=== PATIENT | male | born 1950 | race Caucasian/White ===

== ENCOUNTER → 2016-12-15 | Outpatient (CLI) | payer BC, MEDICARE ==
[~2016-12-15] VITALS: Ht 180.3 cm; Wt 127.0 kg
[~2016-12-15] MED LIST: ALLEGRA; ARGI500C5 OR; ASCO100076 OR; ASPI-264 OR; ATO40T OR; FLUT500M2 INH; FOLI1TAB6 OR; FURO40TA PO; HCTZ; LEVEMIR SC; LOSA100T22 PO; METF-312 OR; MULTI VIT; NITROSTAT; POTA10SO11 PO; TAM04C OR; [UNRECOGNIZED DRUG - CODE]; [UNRECOGNIZED DRUG - REMARK]
[2016-12-15 11:00] VITALS: BP 137/78
[2016-12-15 11:40] VITALS: BP 134/74
[2016-12-15 16:43] LABS: INR 0.97 (0.9-1.15); Partial Thromboplastin Time 25.7 sec (22.64-33.71)
[2016-12-15 16:56] LABS: Potassium 3.6 mmol/L (3.5-5.1)
[2016-12-15 17:01] LABS: BUN/Creatinine Ratio 15.4; Calcium 8.6 mg/dL (8.5-10.1)
[2016-12-15 17:09] LABS: Basophils # (auto) 0 uL; Basophils % (auto) 0.1 % (0.0-2.0); Eosinophils # (auto) 0.4 uL; Eosinophils % (auto) 6.3 % (0.0-7.0); Hematocrit 45.4 % (41.0-53.0); Hemoglobin 15.1 g/dL (13.5-17.5); Lymphocytes % (auto) 15.6 % (10.0-50.0); Mean Corpuscular Hemoglobin 31.3 pg (28.0-32.0); Mean Corpuscular Hgb Conc. 33.3 g/dL (32.0-36.0); Mean Platelet Volume 8.7 fL (7.4-10.4); Monocytes # (auto) 0.6 uL; Monocytes % (auto) 8.6 % (0.0-12.0); Neutrophils # (auto) 4.5 uL; Neutrophils % (auto) 69.4 % (37.0-80.0); Platelet Count (auto) 273 10^3/uL (140-450); Red Cell Distribution Width 13.9 % (11.6-16.0); White Blood Cell 6.5 10^3/uL (4.4-10.8)
== END | disposition home or self-care (01) ==
LOC: Rad HDHVI 10:45
PROVIDERS: ATTEND Internal Medicine Cardiovascular Disease
DX: I10 Essential (primary) hypertension (principal); D64.9 Anemia, unspecified; R79.1 Abnormal coagulation profile
CPT/HCPCS: 36415; 71020; 80048; 85025; 85049; 85610; 85730; G0463

== ENCOUNTER 2016-12-17 13:23 | Day surgery (SDC) | payer BC, MEDICARE ==
[~2016-12-17] VITALS: Ht 180.3 cm; Wt 127.0 kg
[~2016-12-17 13:23] MED LIST changes: -ALLEGRA; -HCTZ; +LIDOCAINE 2%HCL (LOCAL ANESTH.) INJ 20ML MDV ONE; -TAM04C OR; -[UNRECOGNIZED DRUG - CODE]
[2016-12-17] MEDS ORDERED: VANCOMYCIN HCL 1000 MG VL ONE (14:02)
[2016-12-17] MEDS ORDERED: VANCOMYCIN 1GM/250ML D5W 250 ML IV ONE ×2 (14:02→14:15)
[2016-12-17] MEDS ORDERED: VANCOMYCIN HCL 1000 MG VL IR ONE (14:15)
[2016-12-17] MEDS ORDERED: fentaNYL CITRATE 100 MCG/2 ML VL ONE (15:06)
[2016-12-17] MEDS ORDERED: MIDAZOLAM HCL 1MG/1ML-2 ML VIAL ONE (15:07)
[2016-12-17] MEDS ORDERED: diphenhdrAMINE HCL 50 MG/1 ML VL ONE ×2 (15:55→15:59)
[2016-12-17] MEDS ORDERED: methylPREDNISolone SOD SUCC 125 MG/2 ML VL ONE (15:55)
[2016-12-17] MEDS ORDERED: diphenhdrAMINE HCL 50 MG/1 ML VL IV ONE (16:15)
[2016-12-17] MEDS ORDERED: methylPREDNISolone SOD SUCC 125 MG/2 ML VL IV ONE (16:15)
== END 2016-12-17 18:00 | disposition home or self-care (01) ==
LOC: CATH 13:23
PROVIDERS: ATTEND Internal Medicine Cardiovascular Disease
DX: I25.10 Atherosclerotic heart disease of native coronary artery without angina pectoris (principal); I20.9 Angina pectoris, unspecified; Z95.1 Presence of aortocoronary bypass graft; I10 Essential (primary) hypertension; E78.5 Hyperlipidemia, unspecified; E11.9 Type 2 diabetes mellitus without complications; J45.909 Unspecified asthma, uncomplicated
CPT/HCPCS: 33228; C1785; J1200; J2250; J2930; J3010; J3370; J7030; 99152

== ENCOUNTER 2017-03-30 01:27 | Inpatient (IN) | payer BC, MEDICARE ==
[~2017-03-30] VITALS: Ht 180.3 cm; Wt 120.1 kg
[~2017-03-30 01:27] MED LIST changes: -LIDOCAINE 2%HCL (LOCAL ANESTH.) INJ 20ML MDV ONE
[2017-03-30 02:35] LABS: Urine Bilirubin Negative (Negative); Urine Color PINK (Yellow); Urine Glucose Normal (Normal); Urine Ketone TRACE (Negative); Urine Mucus FEW (None Seen); Urine Nitrite Negative (Negative); Urine RBC 840 /hpf (0 - 3); Urine Urobilinogen Normal (Negative)
[2017-03-30 02:35] LABS: Basophils # (auto) 0 uL; Basophils % (auto) 0.3 % (0.0-2.0); Eosinophils # (auto) 0.3 uL; Eosinophils % (auto) 2.6 % (0.0-7.0); Hematocrit 45.4 % (41.0-53.0); Hemoglobin 15.3 g/dL (13.5-17.5); Lymphocytes # (auto) 1.1 uL; Lymphocytes % (auto) 11.5 % (10.0-50.0); Mean Corpuscular Hemoglobin 31.7 pg (28.0-32.0); Mean Corpuscular Hgb Conc. 33.7 g/dL (32.0-36.0); Mean Corpuscular Volume 94.1 fL (80.0-100.0); Mean Platelet Volume 7.7 fL (7.4-10.4); Monocytes # (auto) 0.8 uL; Neutrophils # (auto) 7.5 uL; Neutrophils % (auto) 77.6 % (37.0-80.0); Platelet Count (auto) 305 10^3/uL (140-450); Red Cell Distribution Width 13.9 % (11.6-16.0); White Blood Cell 9.6 10^3/uL (4.4-10.8)
[2017-03-30 02:38] LABS: Urine Blood 3+ /uL (Negative)
[2017-03-30 03:06] LABS: Albumin 4.1 g/dL (3.4-5.0); BUN/Creatinine Ratio 13.9; Calcium 8.9 mg/dL (8.5-10.1)
[2017-03-30 03:09] LABS: Bilirubin, Total 0.6 mg/dL (0.2-1.0); Total Protein 7.6 g/dL (6.4-8.2)
[2017-03-30] MEDS ORDERED: SODIUM CHLORIDE 0.9% 1,000 ML IV ONE (07:38)
[2017-03-30] MEDS ORDERED: KETOROLAC TROMETH 30 MG/ML 1ML VIAL IV ONE (08:30)
[2017-03-30 08:40] LABS: B-Type Natriuretic Peptide 8.12 pg/mL (0-100)
[2017-03-30 08:41] LABS: Temperature: 23.6 C (20.0-25.0)
[2017-03-30] MEDS ORDERED: TEMAZEPAM 15 MG CAP PO PRN (10:30)
[2017-03-30] MEDS ORDERED: DEXTROSE (50%) 50ML SYRG IV PRN (10:30)
[2017-03-30] MEDS ORDERED: MORPHINE SULF INJ 2 MG/ML SYRINGE 1ML IV PRN ×3 (10:30→14:00)
[2017-03-30] MEDS ORDERED: LOSARTAN POTASSIUM 50 MG TAB PO ONE (10:30)
[2017-03-30] MEDS ORDERED: ACETAMINOPHEN 325 MG TAB PO PRN (10:30)
[2017-03-30] MEDS ORDERED: ONDANSETRON HCL 4 MG/2 ML VIAL IV PRN (10:30)
[2017-03-30] MEDS ORDERED: DOCUSATE SOD 100 MG CAP PO PRN (10:30)
[2017-03-30] MEDS ORDERED: NITROGLYCERIN 0.4 MG SL TAB SL PRN (10:30)
[2017-03-30] MEDS ORDERED: HYDROcodone-ACET 5/325MG TAB PO PRN ×2 (10:30→14:00)
[2017-03-30] MEDS: ASPirin-EC 81 mg tab PO SCH (10:45)
[2017-03-30] MEDS: FAMOTIDINE 20 MG TAB PO SCH ×2 (10:45→21:33)
[2017-03-30] MEDS: FOLIC ACID 1 MG TAB PO SCH (11:03)
[2017-03-30] MEDS: FUROSEMIDE 40 MG TAB PO SCH ×3 (11:03→18:38)
[2017-03-30] MEDS: POTASSIUM CHL 20 Meq TABLET PO SCH ×2 (11:03→21:33)
[2017-03-30] MEDS: ASCORBIC ACID 500 MG TAB PO SCH (11:04)
[2017-03-30] MEDS: INSULIN DETEMIR(LEVEMIR) 1unit/0.01ml Soln (100units/ml) SC SCH (11:04)
[2017-03-30] MEDS: LEVOFLOXACIN 500MG 100 ML IV SCH (11:13)
[2017-03-30] MEDS: InsuLIN REG 1unit/0.01ml Soln (100units/ml) SC SCH ×3 (11:30→21:34)
[2017-03-30] MEDS: ACCU-CHEK COMFORT CURVE STRIP VI SCH ×3 (11:30→22:00)
[2017-03-30] MEDS: BUDESONIDE (INHALATION) 0.5 MG/2 ML NEB NEB SCH ×2 (12:03→19:23)
[2017-03-30] MEDS: ALBUTEROL SULF 2.5 MG/0.5ML(0.5%) NEB SOLN NEB SCH ×2 (12:11→19:23)
[2017-03-30] MEDS ORDERED: POTA1TAB4 PO (12:23)
[2017-03-30] MEDS ORDERED: MULT-569 PO (12:23)
[2017-03-30] MEDS ORDERED: POM PO (12:23)
[2017-03-30] MEDS ORDERED: ASPI-498 OR (12:23)
[2017-03-30] MEDS ORDERED: CLOP75TA28 PO (12:23)
[2017-03-30 13:34] VITALS: BP 131/86
[2017-03-30] MEDS: MORPHINE SULF INJ 2 MG/ML SYRINGE 1ML IV PRN (14:01)
[2017-03-30] MEDS: SODIUM CHLOR 0.9% PF (SALINE LOCK) 10ML VIAL IV SCH ×2 (14:04→21:33)
[2017-03-30 17:23] VITALS: BP 136/71
[2017-03-30] MEDS: TAMSULOSIN HYDROCHLORIDE 0.4 MG CAP PO SCH (18:33)
[2017-03-30] MEDS: KETOROLAC TROMETH 30 MG/ML 1ML VIAL IV PRN (18:36)
[2017-03-30] MEDS: ATORVASTATIN 20 MG TAB PO SCH (21:35)
[2017-03-30 22:00] VITALS: BP 135/71
[2017-03-31] VITALS (27 sets, daily range): BP systolic 100–146; BP diastolic 48–84
[2017-03-31] MEDS: ALBUTEROL SULF 2.5 MG/0.5ML(0.5%) NEB SOLN NEB SCH ×4 (00:53→18:40)
[2017-03-31] MEDS: INSULIN DETEMIR(LEVEMIR) 1unit/0.01ml Soln (100units/ml) SC SCH ×3 (04:41→22:00)
[2017-03-31] MEDS: KETOROLAC TROMETH 30 MG/ML 1ML VIAL IV PRN (05:16)
[2017-03-31] MEDS: SODIUM CHLOR 0.9% PF (SALINE LOCK) 10ML VIAL IV SCH ×3 (06:23→22:24)
[2017-03-31] MEDS: InsuLIN REG 1unit/0.01ml Soln (100units/ml) SC SCH ×4 (06:23→22:30)
[2017-03-31] MEDS: ACCU-CHEK COMFORT CURVE STRIP VI SCH ×4 (06:23→22:00)
[2017-03-31] MEDS: BUDESONIDE (INHALATION) 0.5 MG/2 ML NEB NEB SCH (06:47)
[2017-03-31 06:50] LABS: Basophils # (auto) 0 uL; Basophils % (auto) 0.2 % (0.0-2.0); Eosinophils # (auto) 0.3 uL; Eosinophils % (auto) 3.2 % (0.0-7.0); Hematocrit 38.9 % (41.0-53.0); Hemoglobin 13.1 g/dL (13.5-17.5); Lymphocytes % (auto) 11.6 % (10.0-50.0); Mean Corpuscular Hemoglobin 31.8 pg (28.0-32.0); Mean Corpuscular Hgb Conc. 33.5 g/dL (32.0-36.0); Mean Corpuscular Volume 94.9 fL (80.0-100.0); Monocytes % (auto) 12.1 % (0.0-12.0); Neutrophils # (auto) 6.2 uL; Neutrophils % (auto) 72.9 % (37.0-80.0); Platelet Count (auto) 223 10^3/uL (140-450); Red Cell Distribution Width 13.9 % (11.6-16.0); White Blood Cell 8.5 10^3/uL (4.4-10.8)
[2017-03-31 07:20] LABS: Albumin 3.4 g/dL (3.4-5.0); BUN/Creatinine Ratio 15.1; Calcium 8.2 mg/dL (8.5-10.1); Potassium 3.9 mmol/L (3.5-5.1)
[2017-03-31 07:23] LABS: Bilirubin, Total 0.6 mg/dL (0.2-1.0)
[2017-03-31 09:04] LABS: Partial Thromboplastin Time 24.5 sec (22.64-33.71); Prothrombin Time 10.8 sec (9.37-12.3)
[2017-03-31] MEDS: [UNRECOGNIZED DRUG - OTHER] PO SCH (10:00)
[2017-03-31] MEDS: ASPirin-EC 81 mg tab PO SCH (10:00)
[2017-03-31] MEDS: MULTIPLE VITAMIN TAB PO SCH (10:00)
[2017-03-31] MEDS: POTASSIUM CHL 20 Meq TABLET PO SCH (10:00)
[2017-03-31] MEDS: LOSARTAN POTASSIUM 50 MG TAB PO SCH (10:00)
[2017-03-31] MEDS: FAMOTIDINE 20 MG TAB PO SCH (10:00)
[2017-03-31] MEDS: FOLIC ACID 1 MG TAB PO SCH (10:00)
[2017-03-31] MEDS: ASCORBIC ACID 500 MG TAB PO SCH (10:00)
[2017-03-31] MEDS ORDERED: PATIENTS OWN MEDICATION IN SCH ×2 (10:00)
[2017-03-31] MEDS: LEVOFLOXACIN 500MG 100 ML IV SCH (11:23)
[2017-03-31] MEDS: MORPHINE SULF INJ 2 MG/ML SYRINGE 1ML IV PRN (12:25)
[2017-03-31] MEDS ORDERED: GENTAMICIN SULF 80 MG/2 ML VIAL ONE (13:11)
[2017-03-31] MEDS ORDERED: ROCURONIUM 10MG/ML 10ML VIAL IV ONE (13:18)
[2017-03-31] MEDS ORDERED: fentaNYL CITRATE 100 MCG/2 ML VL ONE (13:18)
[2017-03-31] MEDS ORDERED: ONDANSETRON HCL 4 MG/2 ML VIAL ONE (13:19)
[2017-03-31] MEDS ORDERED: DEXAMETHASONE SOD PHOS 10MG/1ML VIAL INJ ONE (13:19)
[2017-03-31] MEDS ORDERED: KETOROLAC TROMETH 60MG/2ML VIAL IM ONE (13:19)
[2017-03-31] MEDS ORDERED: ETOMIDATE (2MG/ML) 20ML VIAL IV ONE (13:28)
[2017-03-31] MEDS ORDERED: MIDAZOLAM HCL 1MG/1ML-2 ML VIAL ONE ×2 (14:19→15:07)
[2017-03-31] MEDS ORDERED: IPRATROPIUM BROM 0.5 MG/2.5ML INH SOL NEB ONE ×2 (14:30)
[2017-03-31] MEDS ORDERED: IPRATROPIUM BROM 0.5 MG/2.5ML INH SOL ONE (14:30)
[2017-03-31] MEDS ORDERED: ALBUTEROL MEDNEB 2.5 mg/3ml NEB ONE (14:30)
[2017-03-31] MEDS ORDERED: ALBUTEROL SULF 2.5 MG/0.5ML(0.5%) NEB SOLN NEB ONE (14:30)
[2017-03-31] MEDS ORDERED: MIDAZOLAM DRIP 100 mg/100mL NS 100 ML IV ONE (15:10)
[2017-03-31] MEDS: MIDAZOLAM DRIP 100 mg/100mL NS 100 ML IV SCH ×2 (15:10→15:34)
[2017-03-31] MEDS ORDERED: MIDAZOLAM HCL 1MG/1ML-2 ML VIAL IV ONE (15:14)
[2017-03-31] MEDS ORDERED: MORPHINE SULF INJ 2 MG/ML SYRINGE 1ML IV PRN (15:15)
[2017-03-31] MEDS ORDERED: MIDAZOLAM HCL 1MG/1ML-2 ML VIAL IV PRN (15:15)
[2017-03-31] MEDS ORDERED: ONDANSETRON HCL 4 MG/2 ML VIAL IV ONE (15:15)
[2017-03-31] MEDS ORDERED: LABETALOL HCL 5 MG/ML 4ML SYRINGE IV PRN (15:15)
[2017-03-31] MEDS: FUROSEMIDE 40 MG TAB PO SCH (18:00)
[2017-03-31] MEDS: TAMSULOSIN HYDROCHLORIDE 0.4 MG CAP PO SCH (18:00)
[2017-03-31] MEDS ORDERED: fentaNYL Drip 2500mCg/250mlNS 250 ML IV ONE (18:23)
[2017-03-31] MEDS ORDERED: PROPOFOL 100 ML IV ONE (18:23)
[2017-03-31] MEDS: PROPOFOL 100 ML IV SCH (18:48)
[2017-03-31] MEDS: fentaNYL Drip 2500mCg/250mlNS 250 ML IV SCH (18:48)
[2017-03-31] MEDS ORDERED: FUROSEMIDE 100 MG/10ML VIAL IV ONE (19:00)
[2017-04-01] VITALS (75 sets, daily range): BP systolic 94–169; BP diastolic 46–105
[2017-04-01] MEDS: POTASSIUM CHL 20 Meq TABLET PO SCH (00:30)
[2017-04-01] MEDS: FAMOTIDINE 20 MG TAB PO SCH ×3 (00:30→22:44)
[2017-04-01] MEDS: ATORVASTATIN 20 MG TAB PO SCH ×2 (00:30→22:43)
[2017-04-01] MEDS ORDERED: MIDAZOLAM HCL 1MG/1ML-2 ML VIAL IV ONE (01:30)
[2017-04-01] MEDS: SODIUM CHLOR 0.9% PF (SALINE LOCK) 10ML VIAL IV SCH ×3 (06:00→22:00)
[2017-04-01] MEDS: BUDESONIDE (INHALATION) 0.5 MG/2 ML NEB NEB SCH ×2 (06:00→18:00)
[2017-04-01] MEDS: ALBUTEROL SULF 2.5 MG/0.5ML(0.5%) NEB SOLN NEB SCH ×3 (06:00→18:00)
[2017-04-01] MEDS: FUROSEMIDE 40 MG TAB PO SCH ×2 (06:25→17:51)
[2017-04-01] MEDS: InsuLIN REG 1unit/0.01ml Soln (100units/ml) SC SCH ×4 (07:00→22:00)
[2017-04-01] MEDS: INSULIN DETEMIR(LEVEMIR) 1unit/0.01ml Soln (100units/ml) SC SCH ×2 (07:00→22:00)
[2017-04-01] MEDS: ACCU-CHEK COMFORT CURVE STRIP VI SCH ×4 (07:07→22:00)
[2017-04-01] MEDS: [UNRECOGNIZED DRUG - OTHER] PO SCH (10:00)
[2017-04-01] MEDS: FOLIC ACID 1 MG TAB PO SCH (10:06)
[2017-04-01] MEDS: LEVOFLOXACIN 500MG 100 ML IV SCH (10:06)
[2017-04-01] MEDS: POTASSIUM CHL 10% (20 MEQ/15ML) ORAL SOLN GT SCH ×2 (10:06→22:43)
[2017-04-01] MEDS: ASPirin-EC 81 mg tab PO SCH (10:07)
[2017-04-01] MEDS: LOSARTAN POTASSIUM 50 MG TAB PO SCH (10:07)
[2017-04-01] MEDS: MULTIPLE VITAMIN TAB PO SCH (10:08)
[2017-04-01] MEDS: ASCORBIC ACID 500 MG TAB PO SCH (10:08)
[2017-04-01] MEDS ORDERED: FUROSEMIDE 40 MG/4 ML VIAL IV ONE ×2 (11:30→16:00)
[2017-04-01 12:23] LABS: Hematocrit 43.4 % (41.0-53.0); Hemoglobin 14.5 g/dL (13.5-17.5); Mean Corpuscular Hemoglobin 31.7 pg (28.0-32.0); Mean Corpuscular Hgb Conc. 33.4 g/dL (32.0-36.0); Mean Corpuscular Volume 95.1 fL (80.0-100.0); Mean Platelet Volume 7.8 fL (7.4-10.4); Platelet Count (auto) 267 10^3/uL (140-450); Red Cell Distribution Width 13.9 % (11.6-16.0); SUSPECT VIEW TRANSMISSION; White Blood Cell 13.8 10^3/uL (4.4-10.8)
[2017-04-01 12:27] LABS: Metamyelocytes % 0; Myelocytes % 0; Promyelocytes % 0; Reactive Lymphocytes 0
[2017-04-01 12:55] LABS: BUN/Creatinine Ratio 20.7; Calcium 8.7 mg/dL (8.5-10.1); Potassium 3.5 mmol/L (3.5-5.1)
[2017-04-01 13:14] LABS: Platelet Estimate Adequate; RBC Morphology Normal
[2017-04-01] MEDS: MIDAZOLAM DRIP 100 mg/100mL NS 100 ML IV SCH (15:25)
[2017-04-01] MEDS: fentaNYL Drip 2500mCg/250mlNS 250 ML IV SCH (17:51)
[2017-04-01] MEDS: PROPOFOL 100 ML IV SCH (17:51)
[2017-04-01] MEDS: TAMSULOSIN HYDROCHLORIDE 0.4 MG CAP PO SCH (18:27)
[2017-04-01] MEDS ORDERED: POTA1TAB4 PO (18:33)
[2017-04-01] MEDS ORDERED: POTASSIUM CHL 10% (20 MEQ/15ML) ORAL SOLN ONE (22:31)
[2017-04-02] VITALS (16 sets, daily range): BP systolic 101–152; BP diastolic 49–96
[2017-04-02] MEDS: ALBUTEROL SULF 2.5 MG/0.5ML(0.5%) NEB SOLN NEB SCH ×4 (06:00→19:12)
[2017-04-02] MEDS: FUROSEMIDE 40 MG TAB PO SCH ×2 (06:01→17:35)
[2017-04-02] MEDS: SODIUM CHLOR 0.9% PF (SALINE LOCK) 10ML VIAL IV SCH ×3 (06:05→21:53)
[2017-04-02] MEDS: InsuLIN REG 1unit/0.01ml Soln (100units/ml) SC SCH ×4 (06:31→21:53)
[2017-04-02] MEDS: INSULIN DETEMIR(LEVEMIR) 1unit/0.01ml Soln (100units/ml) SC SCH ×2 (06:32→21:57)
[2017-04-02] MEDS: ACCU-CHEK COMFORT CURVE STRIP VI SCH ×4 (06:32→21:53)
[2017-04-02] MEDS: BUDESONIDE (INHALATION) 0.5 MG/2 ML NEB NEB SCH ×2 (10:00→19:12)
[2017-04-02] MEDS: POTASSIUM CHL 10% (20 MEQ/15ML) ORAL SOLN GT SCH ×2 (10:00→21:53)
[2017-04-02] MEDS: ASPirin-EC 81 mg tab PO SCH ×2 (10:00→10:28)
[2017-04-02] MEDS: [UNRECOGNIZED DRUG - OTHER] PO SCH (10:00)
[2017-04-02] MEDS: LOSARTAN POTASSIUM 50 MG TAB PO SCH (10:27)
[2017-04-02] MEDS: FOLIC ACID 1 MG TAB PO SCH (10:27)
[2017-04-02] MEDS: ASCORBIC ACID 500 MG TAB PO SCH (10:27)
[2017-04-02] MEDS: FAMOTIDINE 20 MG TAB PO SCH ×2 (10:27→21:52)
[2017-04-02] MEDS: LEVOFLOXACIN 500MG 100 ML IV SCH (10:28)
[2017-04-02] MEDS: MULTIPLE VITAMIN TAB PO SCH (10:34)
[2017-04-02] MEDS ORDERED: GENTAMICIN SULFATE 300 MG in D5W 5% 100 ML IV ONE (10:45)
[2017-04-02] MEDS: MIDAZOLAM DRIP 100 mg/100mL NS 100 ML IV SCH (12:09)
[2017-04-02] MEDS: TAMSULOSIN HYDROCHLORIDE 0.4 MG CAP PO SCH (17:35)
[2017-04-02] MEDS: ATORVASTATIN 20 MG TAB PO SCH (21:52)
[2017-04-03] MEDS: ALBUTEROL SULF 2.5 MG/0.5ML(0.5%) NEB SOLN NEB SCH ×2 (00:18→06:48)
[2017-04-03 04:33] VITALS: BP 132/70
[2017-04-03 05:41] LABS: Basophils # (auto) 0 uL; Basophils % (auto) 0.3 % (0.0-2.0); Eosinophils # (auto) 0.3 uL; Eosinophils % (auto) 3.7 % (0.0-7.0); Hematocrit 41.5 % (41.0-53.0); Hemoglobin 13.7 g/dL (13.5-17.5); Lymphocytes # (auto) 1.5 uL; Mean Corpuscular Hemoglobin 31.6 pg (28.0-32.0); Mean Corpuscular Volume 95.8 fL (80.0-100.0); Monocytes # (auto) 0.9 uL; Monocytes % (auto) 13.3 % (0.0-12.0); Neutrophils % (auto) 59.7 % (37.0-80.0); Platelet Count (auto) 255 10^3/uL (140-450); Red Cell Distribution Width 13.9 % (11.6-16.0); White Blood Cell 6.7 10^3/uL (4.4-10.8)
[2017-04-03] MEDS: SODIUM CHLOR 0.9% PF (SALINE LOCK) 10ML VIAL IV SCH (05:57)
[2017-04-03] MEDS: FUROSEMIDE 40 MG TAB PO SCH (05:57)
[2017-04-03] MEDS: InsuLIN REG 1unit/0.01ml Soln (100units/ml) SC SCH (06:45)
[2017-04-03] MEDS: INSULIN DETEMIR(LEVEMIR) 1unit/0.01ml Soln (100units/ml) SC SCH (06:45)
[2017-04-03] MEDS: ACCU-CHEK COMFORT CURVE STRIP VI SCH (06:45)
[2017-04-03] MEDS: BUDESONIDE (INHALATION) 0.5 MG/2 ML NEB NEB SCH (06:50)
[2017-04-03 08:09] VITALS: BP 133/72
[2017-04-03] MEDS: ASPirin-EC 81 mg tab PO SCH (10:00)
[2017-04-03] MEDS: [UNRECOGNIZED DRUG - OTHER] PO SCH (10:00)
[2017-04-03] MEDS: LEVOFLOXACIN 500MG 100 ML IV SCH (10:00)
[2017-04-03] MEDS: ASCORBIC ACID 500 MG TAB PO SCH (10:01)
[2017-04-03] MEDS: FAMOTIDINE 20 MG TAB PO SCH (10:01)
[2017-04-03] MEDS: FOLIC ACID 1 MG TAB PO SCH (10:01)
[2017-04-03] MEDS: MULTIPLE VITAMIN TAB PO SCH (10:01)
[2017-04-03] MEDS: LOSARTAN POTASSIUM 50 MG TAB PO SCH (10:01)
[2017-04-03] MEDS: POTASSIUM CHL 10% (20 MEQ/15ML) ORAL SOLN GT SCH (10:16)
[2017-04-03 10:55] VITALS: BP 133/72
== END 2017-04-03 11:30 | disposition home or self-care (01) | DRG 668 ==
LOC: ER 01:29 → TELE 01:30 → TELE-E-ADS 11:52 → TELE-WESTW 17:19 → ICU WEST 03-31 18:44 → TELE-CENTR 04-02 12:47
PROVIDERS: ADMIT Internal Medicine; ATTEND Internal Medicine Cardiovascular Disease
PROC: 0TC68ZZ Extirpation of Matter from Right Ureter, Via Natural or Artificial Opening Endoscopic (ICD-10-PCS; 2017-03-31)
PROC: 5A1935Z Respiratory Ventilation, Less than 24 Consecutive Hours (ICD-10-PCS; 2017-03-31)
PROC: 0BH17EZ Insertion of Endotracheal Airway into Trachea, Via Natural or Artificial Opening (ICD-10-PCS; 2017-03-31)
PROC: 0T768DZ Dilation of Right Ureter with Intraluminal Device, Via Natural or Artificial Opening Endoscopic (ICD-10-PCS; principal; 2017-03-31 13:19)
PROC: 5A09357 Assistance with Respiratory Ventilation, Less than 24 Consecutive Hours, Continuous Positive Airway Pressure (ICD-10-PCS; 2017-04-01)
DX: N13.2 Hydronephrosis with renal and ureteral calculous obstruction (principal); J96.90 Respiratory failure, unspecified, unspecified whether with hypoxia or hypercapnia; I13.0 Hypertensive heart and chronic kidney disease with heart failure and stage 1 through stage 4 chronic kidney disease, or unspecified chronic kidney disease; E66.2 Morbid (severe) obesity with alveolar hypoventilation; D35.00 Benign neoplasm of unspecified adrenal gland; E10.21 Type 1 diabetes mellitus with diabetic nephropathy; E10.22 Type 1 diabetes mellitus with diabetic chronic kidney disease; N17.9 Acute kidney failure, unspecified; E78.5 Hyperlipidemia, unspecified; I25.10 Atherosclerotic heart disease of native coronary artery without angina pectoris; J44.9 Chronic obstructive pulmonary disease, unspecified; K80.20 Calculus of gallbladder without cholecystitis without obstruction; J98.4 Other disorders of lung; M19.90 Unspecified osteoarthritis, unspecified site; E10.40 Type 1 diabetes mellitus with diabetic neuropathy, unspecified; E10.65 Type 1 diabetes mellitus with hyperglycemia; I50.9 Heart failure, unspecified; N18.2 Chronic kidney disease, stage 2 (mild); Z83.3 Family history of diabetes mellitus; Z85.46 Personal history of malignant neoplasm of prostate; Z95.1 Presence of aortocoronary bypass graft; Z88.6 Allergy status to analgesic agent; Z88.0 Allergy status to penicillin; Z88.8 Allergy status to other drugs, medicaments and biological substances; Z79.899 Other long term (current) drug therapy; Z87.440 Personal history of urinary (tract) infections; Z90.79 Acquired absence of other genital organ(s); Z95.0 Presence of cardiac pacemaker; Z95.5 Presence of coronary angioplasty implant and graft; Z68.37 Body mass index [BMI] 37.0-37.9, adult; I25.2 Old myocardial infarction
CPT/HCPCS: 36415; 36600; 51702; 71010; 74000; 74176; 76000; 80048; 80053; 81001; 82805; 82962; 83036; 83880; 85007; 85025; 85027; 85610; 85730; 87081; 87086; 87088; 87186; 93306; 94002; 94003; 94640; 94660; 96361; 96374; J1100; J1815; J1885; J1956; J2250; J2405; J2704; J3010; J7060

== ENCOUNTER → 2017-05-11 | Outpatient (CLI) | payer MEDICARE, OTHER ==
[~2017-05-11] VITALS: Ht 180.3 cm; Wt 124.7 kg
[~2017-05-11] MED LIST changes: -ARGI500C5 OR; -ASPI-264 OR; +ASPI-498 OR; +CLOP75TA28 PO; -METF-312 OR; +METF-370 OR; +MULT-569 PO; -MULTI VIT; +POM PO; -POTA10SO11 PO; +POTA1TAB4 PO
== END | disposition home or self-care (01) ==
LOC: Rad HDHVI 09:25
PROVIDERS: ATTEND Internal Medicine Cardiovascular Disease
DX: I10 Essential (primary) hypertension (principal); I25.10 Atherosclerotic heart disease of native coronary artery without angina pectoris; E78.00 Pure hypercholesterolemia, unspecified; E11.40 Type 2 diabetes mellitus with diabetic neuropathy, unspecified; E11.65 Type 2 diabetes mellitus with hyperglycemia; I25.2 Old myocardial infarction; Z95.1 Presence of aortocoronary bypass graft; Z95.0 Presence of cardiac pacemaker
CPT/HCPCS: 78452; 93017; 93306; 96374; A9500

== ENCOUNTER 2017-05-18 06:31 | Day surgery (SDC) | payer MEDICARE, OTHER ==
[~2017-05-18] VITALS: Ht 30.5 cm; Wt 0.5 kg
[2017-05-18 07:55] LABS: Basophils # (auto) 0 uL; Basophils % (auto) 0.5 % (0.0-2.0); CONDITION Y; Eosinophils # (auto) 0.4 uL; Eosinophils % (auto) 6.2 % (0.0-7.0); Hematocrit 43.2 % (41.0-53.0); Hemoglobin 14.7 g/dL (13.5-17.5); Lymphocytes # (auto) 1.1 uL; Lymphocytes % (auto) 18.9 % (10.0-50.0); Mean Corpuscular Hemoglobin 32.1 pg (28.0-32.0); Mean Corpuscular Hgb Conc. 33.9 g/dL (32.0-36.0); Mean Corpuscular Volume 94.6 fL (80.0-100.0); Mean Platelet Volume 8.2 fL (7.4-10.4); Monocytes # (auto) 0.6 uL; Monocytes % (auto) 11.3 % (0.0-12.0); Neutrophils # (auto) 3.6 uL; Neutrophils % (auto) 63.1 % (37.0-80.0); Platelet Count (auto) 213 10^3/uL (140-450); Red Cell Distribution Width 13.6 % (11.6-16.0); White Blood Cell 5.6 10^3/uL (4.4-10.8)
[2017-05-18 08:18] LABS: BUN/Creatinine Ratio 19.8; Calcium 8.5 mg/dL (8.5-10.1); Potassium 4.1 mmol/L (3.5-5.1)
[2017-05-18] MEDS ORDERED: ALBUTEROL SULF 2.5 MG/0.5ML(0.5%) NEB SOLN NEB ONE (08:30)
[2017-05-18] MEDS ORDERED: ALBUTEROL SULF 2.5 MG/0.5ML(0.5%) NEB SOLN ONE (08:30)
[2017-05-18] MEDS ORDERED: CIPROFLOXACIN 400MG/200ML 200 ML IV ONE (08:36)
[2017-05-18] MEDS ORDERED: GLYCOPYRROLATE 0.2 MG/ML 1ML VIAL IV ONE (08:36)
[2017-05-18] MEDS ORDERED: DEXAMETHASONE SOD PHOS 10MG/1ML VIAL INJ IV ONE (08:36)
[2017-05-18] MEDS ORDERED: PROPOFOL 10 MG/ML 20 ML IV ONE (08:36)
[2017-05-18 09:45] VITALS: BP 154/88
[2017-05-18 10:19] LABS: INR 0.94 (0.9-1.15); Partial Thromboplastin Time 25.2 sec (22.64-33.71); Prothrombin Time 10.2 sec (9.37-12.3)
== END 2017-05-18 10:00 | disposition home or self-care (01) ==
LOC: SUR 06:31
PROVIDERS: ATTEND Urology
DX: N20.0 Calculus of kidney (principal); J45.909 Unspecified asthma, uncomplicated; Z95.0 Presence of cardiac pacemaker; I50.9 Heart failure, unspecified; I25.10 Atherosclerotic heart disease of native coronary artery without angina pectoris; C61 Malignant neoplasm of prostate; E11.9 Type 2 diabetes mellitus without complications; I10 Essential (primary) hypertension; Z95.1 Presence of aortocoronary bypass graft; E78.00 Pure hypercholesterolemia, unspecified; Z88.8 Allergy status to other drugs, medicaments and biological substances; Z88.0 Allergy status to penicillin; E66.9 Obesity, unspecified
CPT/HCPCS: 36415; 50590; 80048; 82962; 85025; 85610; 85730; J0744; J1100; J2704

== ENCOUNTER → 2017-06-22 | Outpatient (CLI) | payer BC, MEDICARE, OTHER ==
[~2017-06-22] VITALS: Ht 180.3 cm; Wt 123.4 kg
[~2017-06-22] MED LIST changes: +ANGIOMAX 250 MG VIAL IV ONE; +METF-370 PO; +METF-371 PO; +MIDAZOLAM HCL 1MG/1ML-2 ML VIAL ONE; +fentaNYL CITRATE 100 MCG/2 ML VL ONE
[2017-06-22 09:50] VITALS: BP 146/85
[2017-06-22 10:30] VITALS: BP 138/80
[2017-06-22 12:23] LABS: Basophils # (auto) 0 uL; Basophils % (auto) 0.3 % (0.0-2.0); CONDITION Y; Eosinophils # (auto) 0.4 uL; Eosinophils % (auto) 5.5 % (0.0-7.0); Hematocrit 44.4 % (41.0-53.0); Hemoglobin 15.2 g/dL (13.5-17.5); Lymphocytes # (auto) 1.2 uL; Lymphocytes % (auto) 14.6 % (10.0-50.0); Mean Corpuscular Hemoglobin 32.4 pg (28.0-32.0); Mean Corpuscular Hgb Conc. 34.3 g/dL (32.0-36.0); Mean Corpuscular Volume 94.4 fL (80.0-100.0); Mean Platelet Volume 8.4 fL (7.4-10.4); Monocytes # (auto) 0.7 uL; Monocytes % (auto) 9.1 % (0.0-12.0); Neutrophils # (auto) 5.6 uL; Neutrophils % (auto) 70.5 % (37.0-80.0); Platelet Count (auto) 258 10^3/uL (140-450); Red Cell Distribution Width 13.5 % (11.6-16.0); White Blood Cell 7.9 10^3/uL (4.4-10.8)
[2017-06-22 12:42] LABS: BUN/Creatinine Ratio 17.4; Calcium 8.9 mg/dL (8.5-10.1); INR 0.93 (0.9-1.15); Partial Thromboplastin Time 25.2 sec (22.64-33.71); Potassium 3.4 mmol/L (3.5-5.1); Prothrombin Time 10.1 sec (9.37-12.3)
== END | disposition home or self-care (01) ==
LOC: CHF HDHVI 09:18
PROVIDERS: ATTEND Internal Medicine Cardiovascular Disease
DX: Z01.812 Encounter for preprocedural laboratory examination (principal); I10 Essential (primary) hypertension; I25.10 Atherosclerotic heart disease of native coronary artery without angina pectoris; E11.9 Type 2 diabetes mellitus without complications; E78.00 Pure hypercholesterolemia, unspecified; D64.9 Anemia, unspecified; R79.1 Abnormal coagulation profile; Z95.0 Presence of cardiac pacemaker; Z95.1 Presence of aortocoronary bypass graft
CPT/HCPCS: 36415; 80048; 85025; 85610; 85730; 93005; G0463

== ENCOUNTER → 2017-06-24 | Day surgery (SDC) | payer BC, MEDICARE, OTHER ==
[~2017-06-24] VITALS: Ht 30.5 cm; Wt 0.5 kg
[~2017-06-24] MED LIST changes: -ANGIOMAX 250 MG VIAL IV ONE; +IOHEXOL 350 MG/ML 100ML IJ ONE; +IPRATROPIUM BROM 0.5 MG/2.5ML INH SOL NEB ONE; +LIDOCAINE 2%HCL (LOCAL ANESTH.) INJ 20ML MDV ONE; -MIDAZOLAM HCL 1MG/1ML-2 ML VIAL ONE; -fentaNYL CITRATE 100 MCG/2 ML VL ONE
== END | disposition home or self-care (01) ==
LOC: CATH 12:06
PROVIDERS: ATTEND Internal Medicine Cardiovascular Disease
DX: I25.10 Atherosclerotic heart disease of native coronary artery without angina pectoris (principal); I74.8 Embolism and thrombosis of other arteries; I20.9 Angina pectoris, unspecified; I50.9 Heart failure, unspecified; Z95.1 Presence of aortocoronary bypass graft; J44.9 Chronic obstructive pulmonary disease, unspecified; G47.30 Sleep apnea, unspecified; C61 Malignant neoplasm of prostate
CPT/HCPCS: 93458

== ENCOUNTER → 2017-09-13 | Outpatient (CLI) | payer MEDICARE, OTHER ==
[~2017-09-13] VITALS: Ht 1 cm; Wt 0.5 kg
[~2017-09-13] MED LIST changes: +FUROSEMIDE 40 MG/4 ML VIAL IV ONE; +FUROSEMIDE 40 MG/4 ML VIAL ONE; -IPRATROPIUM BROM 0.5 MG/2.5ML INH SOL NEB ONE; -LIDOCAINE 2%HCL (LOCAL ANESTH.) INJ 20ML MDV ONE; +LORazepam 0.5 MG TAB ONE; +LORazepam 0.5 MG TAB PO ONE; -LOSA100T22 PO; -METF-370 OR; +POTASSIUM CHL 20 Meq TABLET PO ONE; +cefTRIAXone 1GM/50ML D5W 50 ML IV ONE; +cefTRIAXone 1GM/50ML D5W 50 ML IV SCH
[2017-09-13 12:05] VITALS: BP 157/87
[2017-09-13 13:42] LABS: INR 1.3 (0.7-1.3); Prothrombin Time 15.2 sec (9.0-12.0)
[2017-09-13 14:40] VITALS: BP 149/89
== END | disposition home or self-care (01) ==
LOC: Rad HDHVI 11:57
PROVIDERS: ATTEND Internal Medicine Cardiovascular Disease
DX: I50.9 Heart failure, unspecified (principal); M54.2 Cervicalgia
CPT/HCPCS: 70498; 72125; 82565; 85610; 96365; 96375; G0463; J0696

== ENCOUNTER → 2017-10-11 | Outpatient (CLI) | payer MEDICARE, OTHER ==
[~2017-10-11] MED LIST changes: -FUROSEMIDE 40 MG/4 ML VIAL IV ONE; -FUROSEMIDE 40 MG/4 ML VIAL ONE; -IOHEXOL 350 MG/ML 100ML IJ ONE; -LORazepam 0.5 MG TAB ONE; -LORazepam 0.5 MG TAB PO ONE; -POTASSIUM CHL 20 Meq TABLET PO ONE; -cefTRIAXone 1GM/50ML D5W 50 ML IV ONE; -cefTRIAXone 1GM/50ML D5W 50 ML IV SCH
== END | disposition home or self-care (01) ==
LOC: Rad HDHVI 09:53
PROVIDERS: ATTEND Internal Medicine Cardiovascular Disease
DX: G31.89 Other specified degenerative diseases of nervous system (principal); I67.82 Cerebral ischemia; I67.2 Cerebral atherosclerosis; M47.892 Other spondylosis, cervical region; M48.02 Spinal stenosis, cervical region
CPT/HCPCS: 70450; 72125

== ENCOUNTER → 2018-06-28 | Outpatient (CLI) | payer MEDICARE, BC ==
[~2018-06-28] VITALS: Ht 30.5 cm; Wt 124.7 kg
[~2018-06-28] MED LIST changes: +VANCOMYCIN 1GM/250ML 250 ML IV ONE; +VANCOMYCIN 1GM/250ML 500 ML IV ONE; +diphenhdrAMINE HCL 50 MG/1 ML VL IV ONE; +diphenhdrAMINE HCL 50 MG/1 ML VL ONE
[2018-06-28 16:08] LABS: Basophils # (auto) 0 uL; Basophils % (auto) 0.8 % (0.0-2.0); Eosinophils # (auto) 0.3 uL; Hematocrit 44.4 % (41.0-53.0); Hemoglobin 15.5 g/dL (13.5-17.5); Lymphocytes % (auto) 17.8 % (10.0-50.0); Mean Corpuscular Hemoglobin 33.5 pg (28.0-32.0); Mean Corpuscular Hgb Conc. 34.9 g/dL (32.0-36.0); Monocytes # (auto) 0.6 uL; Monocytes % (auto) 10.3 % (0.0-12.0); Neutrophils # (auto) 3.8 uL; Neutrophils % (auto) 65.1 % (37.0-80.0); Nucleated Red Blood Cells % 0.2 %; Platelet Count (auto) 225 10^3/uL (140-450); Red Blood Cells 4.63 10^6/uL (4.5-5.90); White Blood Cell 5.8 10^3/uL (4.4-10.8)
[2018-06-28 16:12] LABS: BUN/Creatinine Ratio 12.5; Calcium 8.4 mg/dL (8.5-10.1); Magnesium 2.5 mg/dL (1.6-2.6); Potassium 3.9 mmol/L (3.5-5.1)
[2018-06-28 16:30] VITALS: BP 139/89
== END | disposition home or self-care (01) ==
LOC: CHF HDHVI 11:09
PROVIDERS: ATTEND Internal Medicine Cardiovascular Disease
DX: T82.7XXA Infection and inflammatory reaction due to other cardiac and vascular devices, implants and grafts, initial encounter (principal); R70.0 Elevated erythrocyte sedimentation rate; E83.40 Disorders of magnesium metabolism, unspecified; D64.9 Anemia, unspecified; I10 Essential (primary) hypertension
CPT/HCPCS: 36415; 80048; 83735; 85025; 85652; 96365; 96366; 96375; 96376; G0463; J1200; J3370

== ENCOUNTER → 2018-12-26 | Outpatient (CLI) | payer MEDICARE, BC ==
[~2018-12-26] MED LIST changes: +DOXA4TAB40 PO; +MONT10TA34 PO; +RIVA15TA PO; -VANCOMYCIN 1GM/250ML 250 ML IV ONE; -VANCOMYCIN 1GM/250ML 500 ML IV ONE; -diphenhdrAMINE HCL 50 MG/1 ML VL IV ONE; -diphenhdrAMINE HCL 50 MG/1 ML VL ONE
[2018-12-26 08:50] VITALS: BP 143/79
--- NOTE | 2018-12-26 09:15 | NUR ---
PRE-OP FOR [facility] ON 12/29/18 Pre-Op Discharge Summary: See e-MAR for any medications given for this visit. Pre-op orders received and carried out per MD of EKG, LABS and chest xrays. Patient given a copy of EKG with instructions to go to [facility] out patient for further follow up care.
[2018-12-26 12:18] LABS: INR 0.93 (0.9-1.15); Partial Thromboplastin Time 25.3 sec (23.78-33.04)
[2018-12-26 12:19] LABS: Potassium 3.8 mmol/L (3.5-5.1)
[2018-12-26 12:20] LABS: Basophils # (auto) 0 uL; Basophils % (auto) 0.8 % (0.0-2.0); Eosinophils # (auto) 0.3 uL; Eosinophils % (auto) 4.3 % (0.0-7.0); Hematocrit 44.9 % (41.0-53.0); Hemoglobin 15.4 g/dL (13.5-17.5); Lymphocytes # (auto) 1.2 uL; Lymphocytes % (auto) 19.4 % (10.0-50.0); Mean Corpuscular Hemoglobin 32.7 pg (28.0-32.0); Mean Corpuscular Hgb Conc. 34.4 g/dL (32.0-36.0); Mean Corpuscular Volume 94.9 fL (80.0-100.0); Monocytes # (auto) 0.6 uL; Monocytes % (auto) 9.8 % (0.0-12.0); Neutrophils # (auto) 4.1 uL; Neutrophils % (auto) 65.7 % (37.0-80.0); Nucleated Red Blood Cells % 0.4 %; Platelet Count (auto) 213 10^3/uL (140-450); Red Blood Cells 4.73 10^6/uL (4.5-5.90); Red Cell Distribution Width 13.9 % (11.8-14.3); White Blood Cell 6.2 10^3/uL (4.4-10.8)
[2018-12-26 12:26] LABS: Calcium 8.9 mg/dL (8.5-10.1)
== END | disposition home or self-care (01) ==
LOC: Rad HDHVI 08:46
PROVIDERS: ATTEND Internal Medicine Cardiovascular Disease
DX: Z01.818 Encounter for other preprocedural examination (principal); J98.11 Atelectasis; D64.9 Anemia, unspecified; R79.1 Abnormal coagulation profile; I10 Essential (primary) hypertension
CPT/HCPCS: 36415; 71046; 80048; 85025; 85610; 85730; 93005; G0463

== ENCOUNTER 2018-12-29 06:50 | Inpatient (IN) | payer MEDICARE, BC | END 2018-12-30 11:22 | disposition home or self-care (01) | LOC: CATH 06:50 → TELE-WESTW 13:03 | PROC: 0JH608Z Insertion of Defibrillator Generator into Chest Subcutaneous Tissue and Fascia, Open Approach (ICD-10-PCS; principal; ~2018-12-29) | PROC: 02HK3KZ Insertion of Defibrillator Lead into Right Ventricle, Percutaneous Approach (ICD-10-PCS; ~2018-12-29) | PROC: 02H63KZ Insertion of Defibrillator Lead into Right Atrium, Percutaneous Approach (ICD-10-PCS; ~2018-12-29) | DX: I49.5 Sick sinus syndrome (principal); I48.0 Paroxysmal atrial fibrillation; I25.10 Atherosclerotic heart disease of native coronary artery without angina pectoris ==

== ENCOUNTER → 2019-07-13 | Outpatient (CLI) | payer MEDICARE, BC, OTHER ==
[~2019-07-13] MED LIST changes: -ASPI-498 OR; -CLOP75TA28 PO; -DOXA4TAB40 PO; +DOXA4TAB5 PO; +FURO1TAB31 PO; -FURO40TA PO; +GLIP10TA9 PO; +HYDR-4833 PO; +HYDR-531 PO; -LEVEMIR SC; -METF-371 PO; -NITROSTAT
== END | disposition home or self-care (01) ==
LOC: LAB 11:46
PROVIDERS: ATTEND Internal Medicine Cardiovascular Disease
DX: C61 Malignant neoplasm of prostate (principal); E03.9 Hypothyroidism, unspecified; K90.9 Intestinal malabsorption, unspecified; E29.1 Testicular hypofunction; N39.0 Urinary tract infection, site not specified; D51.9 Vitamin B12 deficiency anemia, unspecified; Z79.899 Other long term (current) drug therapy
CPT/HCPCS: 84153

== ENCOUNTER → 2019-07-17 | Day surgery (SDC) | payer MEDICARE, BC ==
[2019-07-13 12:30] LABS: Basophils # (auto) 0 uL; Basophils % (auto) 0.5 % (0.0-2.0); Eosinophils # (auto) 0.4 uL; Hematocrit 44.3 % (41.0-53.0); Hemoglobin 15.4 g/dL (13.5-17.5); Lymphocytes # (auto) 1.4 uL; Lymphocytes % (auto) 16.1 % (10.0-50.0); Mean Corpuscular Hemoglobin 32.8 pg (28.0-32.0); Mean Corpuscular Hgb Conc. 34.7 g/dL (32.0-36.0); Mean Corpuscular Volume 94.5 fL (80.0-100.0); Monocytes # (auto) 0.8 uL; Monocytes % (auto) 9.5 % (0.0-12.0); Neutrophils # (auto) 6.1 uL; Neutrophils % (auto) 68.9 % (37.0-80.0); Platelet Count (auto) 209 10^3/uL (140-450); Red Blood Cells 4.68 10^6/uL (4.5-5.90); Red Cell Distribution Width 13.6 % (11.8-14.3); Urine Bacteria NONE SEEN /hpf (None Seen); Urine Blood Negative /uL (Negative); Urine Mucus FEW (None Seen); Urine Specific Gravity 1.025 (1.001-1.035); Urine WBC 4 /hpf (0 - 3); White Blood Cell 8.8 10^3/uL (4.4-10.8)
[2019-07-13 12:49] LABS: INR 0.94 (0.9-1.15); Partial Thromboplastin Time 23.8 sec (23.64-32.05)
[2019-07-13 12:59] LABS: Albumin 3.8 g/dL (3.4-5.0); Calcium 8.8 mg/dL (8.5-10.1); Potassium 3.7 mmol/L (3.5-5.1)
[2019-07-13 13:05] LABS: Bilirubin, Total 0.4 mg/dL (0.2-1.0); Total Protein 7.1 g/dL (6.4-8.2)
[~2019-07-17] VITALS: Ht 180.3 cm; Wt 122.5 kg
== END | disposition home or self-care (01) ==
LOC: SUR 09:57
PROVIDERS: ATTEND Urology
DX: N43.3 Hydrocele, unspecified (principal); Z53.8 Procedure and treatment not carried out for other reasons
CPT/HCPCS: 36415; 80053; 81001; 85025; 85610; 85730; 87086

== ENCOUNTER → 2019-12-26 | Outpatient (CLI) | payer MEDICARE, BC ==
[~2019-12-26] MED LIST changes: +CARB25TA22 PO; +EPTIFIBATIDE INJ (2MG/ML) 10ML VIAL IV ONE; +GLIP5TAB12 PO; +IOHEXOL 350 MG/ML 100ML IJ ONE; +MIDAZOLAM HCL 1MG/1ML-2 ML VIAL ONE; +SODIUM CHL 0.9% 0 ML ONE; +fentaNYL CITRATE 100 MCG/2 ML VL ONE
[2019-12-26 09:11] VITALS: BP 122/64
[2019-12-26 09:21] VITALS: BP 125/64
--- NOTE | 2019-12-26 09:21 | NUR ---
Pre-Op Discharge Summary: See e-MAR for any medications given for this visit. Pre-op orders received and carried out per MD of EKG, LABS and chest xrays. Patient given a copy of EKG with instructions to go to [facility] out patient for further follow up care.
[2019-12-26 11:27] LABS: Basophils # (auto) 0 uL; Basophils % (auto) 0.6 % (0.0-2.0); Eosinophils # (auto) 0.3 uL; Eosinophils % (auto) 3.6 % (0.0-7.0); Hematocrit 43.5 % (41.0-53.0); Hemoglobin 14.6 g/dL (13.5-17.5); Lymphocytes # (auto) 1.2 uL; Lymphocytes % (auto) 14.7 % (10.0-50.0); Mean Corpuscular Hemoglobin 31.8 pg (28.0-32.0); Mean Corpuscular Hgb Conc. 33.5 g/dL (32.0-36.0); Monocytes # (auto) 0.7 uL; Monocytes % (auto) 8.4 % (0.0-12.0); Neutrophils # (auto) 5.9 uL; Neutrophils % (auto) 72.7 % (37.0-80.0); Platelet Count (auto) 191 10^3/uL (140-450); Red Blood Cells 4.58 10^6/uL (4.5-5.90); Red Cell Distribution Width 14.3 % (11.8-14.3); White Blood Cell 8.1 10^3/uL (4.4-10.8)
[2019-12-26 11:32] LABS: Calcium 8.8 mg/dL (8.5-10.1); Potassium 3.8 mmol/L (3.5-5.1)
[2019-12-26 11:34] LABS: BUN/Creatinine Ratio 15.6
[2019-12-26 11:46] LABS: INR 1.11 (0.9-1.15); Partial Thromboplastin Time 30.7 sec (23.64-32.05)
== END | disposition home or self-care (01) ==
LOC: Rad HDHVI 08:48
PROVIDERS: ATTEND Internal Medicine Cardiovascular Disease
DX: Z01.812 Encounter for preprocedural laboratory examination (principal); I70.0 Atherosclerosis of aorta; R06.02 Shortness of breath; I25.10 Atherosclerotic heart disease of native coronary artery without angina pectoris; E11.9 Type 2 diabetes mellitus without complications; I49.5 Sick sinus syndrome; R00.2 Palpitations
CPT/HCPCS: 36415; 71046; 80048; 85025; 85610; 85730; 93005; G0463

== ENCOUNTER 2019-12-28 08:16 | Day surgery (SDC) | payer MEDICARE, BC ==
[~2019-12-28] VITALS: Ht 180.3 cm; Wt 122.5 kg
[~2019-12-28 08:16] MED LIST changes: -EPTIFIBATIDE INJ (2MG/ML) 10ML VIAL IV ONE; -GLIP10TA9 PO; -IOHEXOL 350 MG/ML 100ML IJ ONE; -MIDAZOLAM HCL 1MG/1ML-2 ML VIAL ONE; -SODIUM CHL 0.9% 0 ML ONE; -fentaNYL CITRATE 100 MCG/2 ML VL ONE
[2019-12-28] MEDS ORDERED: IOHEXOL 350 MG/ML 100ML IJ ONE (11:10)
[2019-12-28] MEDS ORDERED: LIDOCAINE 2%HCL (LOCAL ANESTH.) INJ 20ML MDV ONE (11:10)
[2019-12-28] MEDS ORDERED: IPRATROPIUM BROM 0.5 MG/2.5ML INH SOL NEB ONE (11:45)
[2019-12-28] MEDS ORDERED: ALBUTEROL SULF 2.5 MG/0.5ML(0.5%) NEB SOLN NEB ONE (11:45)
[2019-12-28] MEDS ORDERED: EPTIFIBATIDE INJ (2MG/ML) 10ML VIAL IV ONE (12:15)
[2019-12-28] MEDS ORDERED: IPRATROPIUM BROM 0.5 MG/2.5ML INH SOL ONE (12:19)
[2019-12-28] MEDS ORDERED: ALBUTEROL SULF 2.5 MG/0.5ML(0.5%) NEB SOLN ONE (12:19)
--- NOTE | 2019-12-28 12:36 | NUR ---
RT NOTE: MISTAKE MADE ON PRE MED NEB TX CORRECT TIME IS 0588
== END 2019-12-28 14:36 | disposition home or self-care (01) ==
LOC: CATH 08:16
PROVIDERS: ATTEND Internal Medicine Cardiovascular Disease
DX: I25.810 Atherosclerosis of coronary artery bypass graft(s) without angina pectoris (principal); I25.5 Ischemic cardiomyopathy; I11.0 Hypertensive heart disease with heart failure; I50.9 Heart failure, unspecified; C61 Malignant neoplasm of prostate; G20 Parkinson's disease; E78.00 Pure hypercholesterolemia, unspecified; I73.9 Peripheral vascular disease, unspecified; E10.21 Type 1 diabetes mellitus with diabetic nephropathy; E10.40 Type 1 diabetes mellitus with diabetic neuropathy, unspecified; M31.9 Necrotizing vasculopathy, unspecified; I48.0 Paroxysmal atrial fibrillation; M19.90 Unspecified osteoarthritis, unspecified site; M54.12 Radiculopathy, cervical region; G47.33 Obstructive sleep apnea (adult) (pediatric); Z95.0 Presence of cardiac pacemaker; Z95.1 Presence of aortocoronary bypass graft; Z98.890 Other specified postprocedural states; Z86.73 Personal history of transient ischemic attack (TIA), and cerebral infarction without residual deficits; Z87.891 Personal history of nicotine dependence; Z95.818 Presence of other cardiac implants and grafts; Z79.01 Long term (current) use of anticoagulants; Z79.899 Other long term (current) drug therapy; Z88.8 Allergy status to other drugs, medicaments and biological substances; Z88.0 Allergy status to penicillin
CPT/HCPCS: 93459; 94640; C1760; C1894; J1327; J1644; J7611; J7644; Q9967; 99152; J2250

== ENCOUNTER → 2020-05-06 | Outpatient (CLI) | payer MEDICARE, BC ==
[~2020-05-06] VITALS: Ht 177.8 cm; Wt 120.2 kg
[~2020-05-06] MED LIST changes: -MULT-569 PO; +MULT1TAB28 PO
== END | disposition home or self-care (01) ==
LOC: Rad HDHVI 09:05
PROVIDERS: ATTEND Internal Medicine Cardiovascular Disease
DX: I25.10 Atherosclerotic heart disease of native coronary artery without angina pectoris (principal); R07.9 Chest pain, unspecified; I25.2 Old myocardial infarction; I10 Essential (primary) hypertension; E78.00 Pure hypercholesterolemia, unspecified; E11.9 Type 2 diabetes mellitus without complications; Z95.0 Presence of cardiac pacemaker; Z95.1 Presence of aortocoronary bypass graft; Z82.49 Family history of ischemic heart disease and other diseases of the circulatory system
CPT/HCPCS: 78452; 93017; 93306; 96374; A9500

== ENCOUNTER → 2021-04-23 | Outpatient (CLI) | payer MEDICARE, BC ==
[~2021-04-23] MED LIST changes: -MONT10TA34 PO; +MONT10TA42 PO
== END | disposition home or self-care (01) ==
LOC: Rad HDHVI 10:52
PROVIDERS: ATTEND Internal Medicine Cardiovascular Disease
DX: I08.8 Other rheumatic multiple valve diseases (principal); I50.43 Acute on chronic combined systolic (congestive) and diastolic (congestive) heart failure; R06.02 Shortness of breath
CPT/HCPCS: 93306

== ENCOUNTER → 2021-05-01 | Outpatient (CLI) | payer MEDICARE, BC ==
[~2021-05-01] VITALS: Ht 180.3 cm; Wt 120.2 kg
== END | disposition home or self-care (01) ==
LOC: Rad HDHVI 09:21
PROVIDERS: ATTEND Internal Medicine Cardiovascular Disease
DX: I25.10 Atherosclerotic heart disease of native coronary artery without angina pectoris (principal); I10 Essential (primary) hypertension; E11.9 Type 2 diabetes mellitus without complications; I49.5 Sick sinus syndrome; R06.02 Shortness of breath; E78.5 Hyperlipidemia, unspecified; R07.89 Other chest pain; Z95.0 Presence of cardiac pacemaker; Z95.1 Presence of aortocoronary bypass graft; Z82.49 Family history of ischemic heart disease and other diseases of the circulatory system
CPT/HCPCS: 78452; 93017; 96374; A9500

== ENCOUNTER → 2021-05-14 | Outpatient (CLI) | payer MEDICARE, BC | END | disposition home or self-care (01) | LOC: XY 07:06 | PROVIDERS: ATTEND Surgery | DX: K80.20 Calculus of gallbladder without cholecystitis without obstruction (principal); R93.2 Abnormal findings on diagnostic imaging of liver and biliary tract | CPT/HCPCS: 78226; A9537 ==

== ENCOUNTER 2021-07-23 09:00 | Inpatient (IN) | payer MEDICARE, BC ==
[2021-07-21 08:55] LABS: Urine WBC None Seen /hpf (0 - 3)
[2021-07-21 09:05] LABS: Basophils # (auto) 0 10 ^3/uL (0-0.2); Basophils % (auto) 0.4 % (0.0-2.0); Eosinophils # (auto) 0.3 10 ^3/uL (0-0.8); Eosinophils % (auto) 2.6 % (0.0-7.0); Hematocrit 44.3 % (41.0-53.0); Hemoglobin 15.7 g/dL (13.5-17.5); Lymphocytes # (auto) 1.7 10 ^3/uL (0.4-5.4); Lymphocytes % (auto) 16.3 % (10.0-50.0); Mean Corpuscular Hemoglobin 32.3 pg (28.0-32.0); Mean Corpuscular Hgb Conc. 35.4 g/dL (32.0-36.0); Mean Corpuscular Volume 91.2 fL (80.0-100.0); Monocytes # (auto) 0.8 10 ^3/uL (0-1.3); Monocytes % (auto) 8.2 % (0.0-12.0); Neutrophils # (auto) 7.4 10 ^3/uL (1.6-8.6); Neutrophils % (auto) 72.5 % (37.0-80.0); Nucleated Red Blood Cells % 0.3 %; Red Blood Cells 4.85 10^6/uL (4.5-5.90); Red Cell Distribution Width 13.8 % (11.8-14.3); White Blood Cell 10.3 10^3/uL (4.4-10.8)
[2021-07-21 09:20] LABS: Urine Bacteria NONE SEEN /hpf (None Seen); Urine Blood Negative /uL (Negative); Urine Hyaline Cast MOD /lpf (0 - 2); Urine Specific Gravity 1.007 (1.001-1.035)
[2021-07-21 09:40] LABS: Albumin 3.9 g/dL (3.4-5.0); Calcium 9.5 mg/dL (8.5-10.1); Potassium 3.2 mmol/L (3.5-5.1)
[2021-07-21 09:46] LABS: BUN/Creatinine Ratio 15.4; Bilirubin, Total 0.7 mg/dL (0.2-1.0)
[2021-07-21 09:47] LABS: Total Protein 7.7 g/dL (6.4-8.2)
[~2021-07-23] VITALS: Ht 177.8 cm; Wt 107.3 kg
[~2021-07-23 09:00] MED LIST changes: -CARB25TA22 PO; +CARB25TA79 PO; +CHOL100055 PO; -DOXA4TAB5 PO; +DOXA4TAB6 PO; +FLUT1AER3 IN; +HOME1SUB13 PO; +HYDR-4188 PO; -HYDR-4833 PO; +LINA290C PO; +METO5TAB5 PO; +MONT-8 PO; -MONT10TA42 PO; -POM PO; +PREG50CA PO; +TAMS1CAP25 PO; +UMEC1AER IN; +ZINC100T5 PO
[2021-07-23] MEDS ORDERED: levoFLOXacin 500MG 100 ML IV ONE (09:15)
[2021-07-23] MEDS: BUPIVACAINE 0.25% INJ 50ML VIAL ONE ×2 (10:24→12:05)
[2021-07-23] MEDS: LIDOCAINE W/ EPINEPHRINE 1% 20ML VIAL ONE ×2 (10:24→12:05)
[2021-07-23] MEDS ORDERED: fentaNYL CITRATE 5 ML ONE (10:50)
[2021-07-23] MEDS ORDERED: MIDAZOLAM HCL 2MG/2ML 2ml VIAL (1mg/ml) ONE (10:50)
[2021-07-23] MEDS ORDERED: ROCURONIUM 10MG/ML 10ML VIAL IV ONE (10:51)
[2021-07-23] MEDS ORDERED: LIDOCAINE 2% (LOCAL ANESTH.) PF 5ml SDV ONE (10:51)
[2021-07-23] MEDS ORDERED: PROPOFOL 10 MG/ML 20 ML IV ONE (10:51)
[2021-07-23] MEDS ORDERED: ONDANSETRON HCL 4 MG/2 ML VIAL ONE (10:51)
[2021-07-23] MEDS ORDERED: ONDANSETRON HCL 4 MG/2 ML VIAL IV PRN ×2 (12:15→12:30)
[2021-07-23] MEDS ORDERED: D5W/SOD CHL 0.45%/KCL 20MEQ 1,000 ML IV SCH (12:15)
[2021-07-23] MEDS ORDERED: SUGAMMADEX 200mg/2ml Vial (100MG/ML) IV ONE (12:17)
[2021-07-23] MEDS ORDERED: MORPHINE SULFATE 4 MG/ML SYR/VIAL ONE (12:27)
[2021-07-23] MEDS ORDERED: MORPHINE SULFATE 4 MG/ML SYR/VIAL IV PRN (12:30)
[2021-07-23] MEDS ORDERED: ACETAMINOPHEN IV 100 ML IV ONE (12:43)
[2021-07-23] MEDS ORDERED: ACETAMINOPHEN IV 1000 MG/100ML (10MG/ML) IV ONE (13:00)
[2021-07-23] MEDS ORDERED: NITROGLYCERIN 0.4 MG SL TAB SL PRN (13:15)
[2021-07-23] MEDS ORDERED: HYDROcodone-ACET 5/325MG TAB PO PRN (13:15)
[2021-07-23] MEDS ORDERED: MORPHINE SULFATE INJECTION 2 MG/ML SYRG IV PRN (13:15)
[2021-07-23] MEDS: D5W/SOD CHL 0.45%/KCL 20MEQ 1,000 ML IV SCH (13:15)
[2021-07-23] MEDS ORDERED: ALBUTEROL SULF 2.5 MG/0.5ML(0.5%) NEB SOLN NEB PRN (13:15)
[2021-07-23] MEDS ORDERED: DEXTROSE (50%) 50ML SYRG IV PRN (13:15)
[2021-07-23] MEDS: CARBIDOPA W LEVODOPA 25/100mg TABLET PO SCH ×2 (15:53→21:23)
[2021-07-23 17:00] VITALS: BP 162/82
[2021-07-23] MEDS: TAMSULOSIN HYDROCHLORIDE 0.4 MG CAP PO SCH (17:55)
[2021-07-23] MEDS: ACCU-CHEK COMFORT CURVE STRIP VI SCH (17:56)
[2021-07-23] MEDS: InsuLIN REG 1unit/0.01ml Soln (100units/ml) SC SCH (17:59)
[2021-07-23 18:02] VITALS: BP 130/79
[2021-07-23] MEDS: MORPHINE SULFATE INJECTION 2 MG/ML SYRG IV PRN (20:07)
[2021-07-23] MEDS: DOXAZOSIN MESYL 2 MG TAB PO SCH (21:23)
[2021-07-23] MEDS: MONTELUKAST SODIUM 10 MG TAB PO SCH (21:23)
[2021-07-23] MEDS: PREGABALIN 25 MG CAP PO SCH (21:23)
[2021-07-23 22:00] VITALS: BP 144/80
[2021-07-23 22:27] VITALS: BP 144/80
[2021-07-24] MEDS: ACCU-CHEK COMFORT CURVE STRIP VI SCH ×5 (00:16→23:30)
[2021-07-24] MEDS: InsuLIN REG 1unit/0.01ml Soln (100units/ml) SC SCH ×5 (00:18→23:36)
[2021-07-24] MEDS: D5W/SOD CHL 0.45%/KCL 20MEQ 1,000 ML IV SCH ×3 (02:24→23:47)
[2021-07-24 05:00] VITALS: BP 130/74
[2021-07-24] MEDS: CARBIDOPA W LEVODOPA 25/100mg TABLET PO SCH ×3 (05:11→21:17)
[2021-07-24 06:51] LABS: Basophils # (auto) 0 10 ^3/uL (0-0.2); Basophils % (auto) 0.3 % (0.0-2.0); Eosinophils # (auto) 0.1 10 ^3/uL (0-0.8); Eosinophils % (auto) 1.4 % (0.0-7.0); Hematocrit 37.2 % (41.0-53.0); Lymphocytes # (auto) 1.1 10 ^3/uL (0.4-5.4); Lymphocytes % (auto) 13.8 % (10.0-50.0); Mean Corpuscular Hgb Conc. 35.1 g/dL (32.0-36.0); Mean Corpuscular Volume 91.2 fL (80.0-100.0); Monocytes # (auto) 0.9 10 ^3/uL (0-1.3); Monocytes % (auto) 10.6 % (0.0-12.0); Neutrophils # (auto) 6.1 10 ^3/uL (1.6-8.6); Neutrophils % (auto) 73.9 % (37.0-80.0); Red Blood Cells 4.08 10^6/uL (4.5-5.90); Red Cell Distribution Width 13.8 % (11.8-14.3); White Blood Cell 8.2 10^3/uL (4.4-10.8)
[2021-07-24] MEDS: MORPHINE SULFATE INJECTION 2 MG/ML SYRG IV PRN ×3 (06:53→23:30)
[2021-07-24 07:22] LABS: Potassium 3.2 mmol/L (3.5-5.1)
[2021-07-24 07:40] LABS: Albumin 2.9 g/dL (3.4-5.0); BUN/Creatinine Ratio 13.3; Bilirubin, Total 0.7 mg/dL (0.2-1.0); Calcium 8.3 mg/dL (8.5-10.1); Total Protein 5.9 g/dL (6.4-8.2)
[2021-07-24 09:00] VITALS: BP 144/71
[2021-07-24] MEDS: PREGABALIN 25 MG CAP PO SCH ×2 (09:06→21:15)
[2021-07-24] MEDS ORDERED: PANTOPRAZOLE 40 MG/10 ML VIAL INJ IV SCH (10:00)
[2021-07-24] MEDS ORDERED: levoFLOXacin 500MG 100 ML IV SCH (10:00)
[2021-07-24 13:00] VITALS: BP 127/68
[2021-07-24 17:00] VITALS: BP 145/59
[2021-07-24] MEDS: TAMSULOSIN HYDROCHLORIDE 0.4 MG CAP PO SCH (18:00)
[2021-07-24] MEDS: MONTELUKAST SODIUM 10 MG TAB PO SCH (21:16)
[2021-07-24] MEDS: DOXAZOSIN MESYL 2 MG TAB PO SCH (21:17)
[2021-07-24 22:00] VITALS: BP 138/77
[2021-07-25 05:00] VITALS: BP 137/69
[2021-07-25] MEDS: ACCU-CHEK COMFORT CURVE STRIP VI SCH (05:28)
[2021-07-25] MEDS: CARBIDOPA W LEVODOPA 25/100mg TABLET PO SCH (05:28)
[2021-07-25] MEDS: InsuLIN REG 1unit/0.01ml Soln (100units/ml) SC SCH (05:36)
[2021-07-25] MEDS: MORPHINE SULFATE INJECTION 2 MG/ML SYRG IV PRN (05:37)
[2021-07-25 07:41] VITALS: BP 137/69
== END 2021-07-25 11:00 | disposition home or self-care (01) | DRG 418 ==
LOC: SUR 09:00 → TELE-CENTR 09:01
PROVIDERS: ADMIT Surgery; ATTEND Internal Medicine Cardiovascular Disease
PROC: 0FT44ZZ Resection of Gallbladder, Percutaneous Endoscopic Approach (ICD-10-PCS; principal; 2021-07-23 10:47)
DX: K80.10 Calculus of gallbladder with chronic cholecystitis without obstruction (principal); E87.4 Mixed disorder of acid-base balance; I50.42 Chronic combined systolic (congestive) and diastolic (congestive) heart failure; Z20.822 Contact with and (suspected) exposure to COVID-19; K82.8 Other specified diseases of gallbladder; E78.5 Hyperlipidemia, unspecified; R16.0 Hepatomegaly, not elsewhere classified; I11.0 Hypertensive heart disease with heart failure; J44.9 Chronic obstructive pulmonary disease, unspecified; E11.40 Type 2 diabetes mellitus with diabetic neuropathy, unspecified; E11.69 Type 2 diabetes mellitus with other specified complication; N40.0 Benign prostatic hyperplasia without lower urinary tract symptoms; I25.10 Atherosclerotic heart disease of native coronary artery without angina pectoris; G47.30 Sleep apnea, unspecified; I25.5 Ischemic cardiomyopathy; E66.01 Morbid (severe) obesity due to excess calories; Z68.37 Body mass index [BMI] 37.0-37.9, adult; Z79.899 Other long term (current) drug therapy; Z95.0 Presence of cardiac pacemaker; Z79.84 Long term (current) use of oral hypoglycemic drugs
CPT/HCPCS: 36415; 80053; 81001; 82962; 83036; 85025; 86850; 86900; 86901; 94660; C9113; G0378; J0131; J1815; J1956; J2001; J2250; J2405; J2704; J3490

== ENCOUNTER → 2022-04-15 | Outpatient (CLI) | payer MEDICARE, BC ==
[~2022-04-15] VITALS: Ht 180.3 cm; Wt 119.7 kg
== END | disposition home or self-care (01) ==
LOC: Rad HDHVI 13:28
PROVIDERS: ATTEND Internal Medicine Cardiovascular Disease
DX: R06.02 Shortness of breath (principal); I25.10 Atherosclerotic heart disease of native coronary artery without angina pectoris; I25.5 Ischemic cardiomyopathy; I11.0 Hypertensive heart disease with heart failure; I50.23 Acute on chronic systolic (congestive) heart failure; E11.9 Type 2 diabetes mellitus without complications; E78.5 Hyperlipidemia, unspecified; Z95.1 Presence of aortocoronary bypass graft; Z95.0 Presence of cardiac pacemaker
CPT/HCPCS: 78452; 93017; 93306; 96374; A9500

== ENCOUNTER 2022-06-25 10:16 | Emergency (ER) | payer MEDICARE, BC ==
[~2022-06-25] VITALS: Ht 177.8 cm; Wt 120.0 kg
[2022-06-25 10:16] VITALS: BP 141/75
[2022-06-25 10:59] LABS: Basophils # (auto) 0 10 ^3/uL (0-0.2); Basophils % (auto) 0.2 % (0.0-2.0); Eosinophils # (auto) 0 10 ^3/uL (0-0.8); Eosinophils % (auto) 0.2 % (0.0-7.0); Hematocrit 45.4 % (41.0-53.0); Hemoglobin 15.4 g/dL (13.5-17.5); Lymphocytes # (auto) 0.8 10 ^3/uL (0.4-5.4); Lymphocytes % (auto) 7.8 % (10.0-50.0); Mean Corpuscular Hemoglobin 31.9 pg (28.0-32.0); Mean Corpuscular Hgb Conc. 33.9 g/dL (32.0-36.0); Monocytes # (auto) 0.4 10 ^3/uL (0-1.3); Neutrophils # (auto) 8.8 10 ^3/uL (1.6-8.6); Neutrophils % (auto) 87.8 % (37.0-80.0); Red Blood Cells 4.83 10^6/uL (4.5-5.90); Red Cell Distribution Width 13.4 % (11.8-14.3)
[2022-06-25 11:14] LABS: Albumin 3.8 g/dL (3.4-5.0); Calcium 9.5 mg/dL (8.5-10.1)
[2022-06-25 11:17] LABS: BUN/Creatinine Ratio 17.6; Bilirubin, Total 0.4 mg/dL (0.2-1.0); Total Protein 7.2 g/dL (6.4-8.2)
[2022-06-25 11:24] LABS: Potassium 4.3 mmol/L (3.5-5.1)
== END 2022-06-25 11:48 | disposition left against medical advice (07) ==
LOC: ER 10:16
DX: R06.02 Shortness of breath (principal); I10 Essential (primary) hypertension; E11.9 Type 2 diabetes mellitus without complications; J44.9 Chronic obstructive pulmonary disease, unspecified; E78.5 Hyperlipidemia, unspecified; Z20.822 Contact with and (suspected) exposure to COVID-19
CPT/HCPCS: 36415; 71045; 80053; 82728; 83880; 84484; 85025; 85379

== ENCOUNTER → 2023-02-23 | Outpatient (CLI) | payer MEDICARE, BC | END | disposition home or self-care (01) | LOC: Rad HDHVI 09:44 | PROVIDERS: ATTEND Internal Medicine Cardiovascular Disease | DX: I34.0 Nonrheumatic mitral (valve) insufficiency (principal); I10 Essential (primary) hypertension; E78.5 Hyperlipidemia, unspecified | CPT/HCPCS: 93306 ==

== ENCOUNTER → 2023-02-24 | Outpatient (CLI) | payer MEDICARE, BC ==
[~2023-02-24] VITALS: Ht 180.3 cm; Wt 105.2 kg
[~2023-02-24] MED LIST changes: +ADENOSINE 90 MG/30 ML INJ IV ONE
== END | disposition home or self-care (01) ==
LOC: Rad HDHVI 09:12
PROVIDERS: ATTEND Internal Medicine Cardiovascular Disease
DX: I11.0 Hypertensive heart disease with heart failure (principal); I50.43 Acute on chronic combined systolic (congestive) and diastolic (congestive) heart failure; I25.10 Atherosclerotic heart disease of native coronary artery without angina pectoris; E11.21 Type 2 diabetes mellitus with diabetic nephropathy; E11.65 Type 2 diabetes mellitus with hyperglycemia; I25.2 Old myocardial infarction; E78.5 Hyperlipidemia, unspecified; Z82.49 Family history of ischemic heart disease and other diseases of the circulatory system; Z95.0 Presence of cardiac pacemaker; Z95.1 Presence of aortocoronary bypass graft
CPT/HCPCS: 78452; 93017; 96374; A9500; J0153

== ENCOUNTER → 2023-11-09 | Outpatient (CLI) | payer MEDICARE, BC ==
[~2023-11-09] MED LIST changes: -ADENOSINE 90 MG/30 ML INJ IV ONE; -DOXA4TAB6 PO; +DOXA4TAB83 PO; +FOLI-119 OR; -FOLI1TAB6 OR
== END | disposition home or self-care (01) ==
LOC: Rad HDHVI 08:54
PROVIDERS: ATTEND Internal Medicine Cardiovascular Disease
DX: I11.9 Hypertensive heart disease without heart failure (principal); I34.81 Nonrheumatic mitral (valve) annulus calcification
CPT/HCPCS: 93306

== ENCOUNTER → 2024-04-17 | Outpatient (CLI) | payer MEDICARE, BC ==
[~2024-04-17] MED LIST changes: -ATO40T OR; +ATOR-507 OR; -GLIP5TAB12 PO; +GLIP5TAB21 PO; -HYDR-4188 PO; +HYDR-4491 PO
[2024-04-17 11:56] VITALS: BP 138/55; PULSE 79; RESP 16; O2SAT 98
[2024-04-17] MEDS: POTASSIUM CHL 20MEQ/100ML 100 ML IV SCH (12:00)
[2024-04-17] MEDS: POTASSIUM CHLORIDE 40 MEQ, LIDOCAINE 1% (LOCAL ANESTH.) 4 ML in SODIUM CHL 0.9% 250 ML IV ONE (12:30)
[2024-04-17 16:32] VITALS: BP 127/74; PULSE 68; RESP 18; O2SAT 98
== END | disposition home or self-care (01) ==
LOC: CHF HDHVI 11:44
PROVIDERS: ATTEND Internal Medicine Cardiovascular Disease
DX: E87.6 Hypokalemia (principal); I25.10 Atherosclerotic heart disease of native coronary artery without angina pectoris; I11.0 Hypertensive heart disease with heart failure; I50.23 Acute on chronic systolic (congestive) heart failure; I25.2 Old myocardial infarction; E78.00 Pure hypercholesterolemia, unspecified; E11.21 Type 2 diabetes mellitus with diabetic nephropathy; Z95.1 Presence of aortocoronary bypass graft
CPT/HCPCS: 96365; 96366; G0463; J2001; J3480; J7050

== ENCOUNTER → 2024-05-22 | Outpatient (CLI) | payer MEDICARE, BC | END | disposition home or self-care (01) | LOC: Rad HDHVI 14:16 | PROVIDERS: ATTEND Internal Medicine Cardiovascular Disease | DX: I10 Essential (primary) hypertension (principal) | CPT/HCPCS: 93880 ==

== ENCOUNTER → 2024-06-26 | Outpatient (CLI) | payer MEDICARE, BC ==
[~2024-06-26] MED LIST changes: +IODIXANOL 320MG/ML 100ML BTL IV ONE
[2024-06-26 13:10] VITALS: BP 141/89; PULSE 71; RESP 18; O2SAT 94
[2024-06-26 13:35] VITALS: BP 157/86; PULSE 75; RESP 18; O2SAT 95
== END | disposition home or self-care (01) ==
LOC: Rad HDHVI 12:48
PROVIDERS: ATTEND Internal Medicine Cardiovascular Disease
DX: R06.02 Shortness of breath (principal); R05.9 Cough, unspecified; K76.0 Fatty (change of) liver, not elsewhere classified; Z90.49 Acquired absence of other specified parts of digestive tract
CPT/HCPCS: 71260; G0463; Q9967

== ENCOUNTER → 2024-06-28 | Outpatient (CLI) | payer MEDICARE, BC ==
[~2024-06-28] MED LIST changes: -IODIXANOL 320MG/ML 100ML BTL IV ONE
== END | disposition home or self-care (01) ==
LOC: Rad HDHVI 14:52
PROVIDERS: ATTEND Internal Medicine Cardiovascular Disease
DX: I34.81 Nonrheumatic mitral (valve) annulus calcification (principal); I25.10 Atherosclerotic heart disease of native coronary artery without angina pectoris; I10 Essential (primary) hypertension; Z95.1 Presence of aortocoronary bypass graft
CPT/HCPCS: 93306

== ENCOUNTER 2025-08-30 10:32 | Outpatient (CLI) | payer MEDICARE, BC | END 2025-08-30 17:00 | disposition home or self-care (01) | LOC: Rad HDHVI 10:32 | PROVIDERS: ATTEND Internal Medicine Cardiovascular Disease | DX: I11.9 Hypertensive heart disease without heart failure (principal); R06.02 Shortness of breath | CPT/HCPCS: 93306 ==

== ENCOUNTER 2025-09-17 09:39 | Outpatient (CLI) | payer MEDICARE, BC ==
[~2025-09-17] VITALS: Ht 180.3 cm; Wt 108.4 kg
[2025-09-17] MEDS ORDERED: ADENOSINE 90 MG/30 ML INJ IV ONE (10:36)
== END 2025-09-17 17:00 | disposition home or self-care (01) ==
LOC: Rad HDHVI 09:39
PROVIDERS: ATTEND Internal Medicine Cardiovascular Disease
DX: I49.1 Atrial premature depolarization (principal); I49.3 Ventricular premature depolarization; R00.0 Tachycardia, unspecified; I25.10 Atherosclerotic heart disease of native coronary artery without angina pectoris; I11.0 Hypertensive heart disease with heart failure; I50.43 Acute on chronic combined systolic (congestive) and diastolic (congestive) heart failure; R00.2 Palpitations; E11.40 Type 2 diabetes mellitus with diabetic neuropathy, unspecified; E78.00 Pure hypercholesterolemia, unspecified; R06.02 Shortness of breath; I25.2 Old myocardial infarction; Z95.0 Presence of cardiac pacemaker; Z95.1 Presence of aortocoronary bypass graft; Z82.49 Family history of ischemic heart disease and other diseases of the circulatory system
CPT/HCPCS: 78452; 93017; A9500; 96374; J0153